=== PATIENT | female | born 1980 | race Caucasian/White ===

== ENCOUNTER → 2017-01-02 | Outpatient (CLI) | payer OTHER | LOC: FIMAGING 09:00 | PROVIDERS: ATTEND Midwife | DX: O99.111 Other diseases of the blood and blood-forming organs and certain disorders involving the immune mechanism complicating pregnancy, first trimester (principal); O99.351 Diseases of the nervous system complicating pregnancy, first trimester; Z3A.12 12 weeks gestation of pregnancy; Z79.01 Long term (current) use of anticoagulants ==